=== PATIENT | male | born 1995 | race African-American/Black ===

== ENCOUNTER 2018-08-14 12:30 | Emergency (ER) | payer MEDICAID ==
[~2018-08-14] VITALS: Ht 172.7 cm; Wt 61.0 kg
[2018-08-14 12:56] VITALS: BP 109/50
[2018-08-14] MEDS ORDERED: CEFTRIAXONE SODIUM 250 MG/VIAL IM ONE (15:15)
[2018-08-14] MEDS ORDERED: METRONIDAZOLE 500MG TABLET PO ONE (15:15)
[2018-08-14] MEDS ORDERED: ONDANSETRON HCL 4MG TABLET PO ONE (15:15)
[2018-08-14] MEDS ORDERED: AZITHROMYCIN 500 MG TABLET PO ONE (15:15)
[2018-08-14] MEDS ORDERED: LIDOCAINE HCL 1% 20ML VIAL (Pyxis) INJ INFIL ONE (15:15)
[2018-08-14] MEDS ORDERED: LIDOCAINE HCL/PF 1% 10 MG/ML 5ML VIAL IJ NR (16:00)
[2018-08-14 16:17] LABS: CLARITY URINE TURBID (CLEAR); COLOR URINE YELLOW (YELLOW); KETONES URINE NEGATIVE (NEGATIVE); LEUKOCYTE ESTERASE URINE NEGATIVE (NEGATIVE); NITRITE URINE NEGATIVE (NEGATIVE); OCCULT BLOOD URINE TRACE (NEGATIVE); PH URINE >=9.0 (4.5-8.0); PROTEIN URINE NEGATIVE (NEGATIVE); SPECIFIC GRAVITY URINE 1.023 (1.005-1.030); UROBILINOGEN URINE 0.2 E.U./dL (0.2-1.0)
== END 2018-08-14 16:23 | disposition home or self-care (01) ==
LOC: ER 14:07
DX: R31.9 Hematuria, unspecified (principal); N34.2 Other urethritis; Z98.890 Other specified postprocedural states
CPT/HCPCS: 81003; 96372; 99284; J0696; J3490; Q0162